=== PATIENT | male | born 1985 | race Caucasian/White ===

== ENCOUNTER 2020-03-27 14:47 | Emergency (ER) | payer OTHER, MEDICAID, SELFPAY ==
[2020-03-27 15:10] VITALS: BP 130/76; PULSE 105; RESP 20; TEMP 37.1; O2SAT 100
--- NOTE | 2020-03-27 15:15 | DI.RAD.S_ITS ---
PROCEDURE: XR KNEE LT 3V INDICATIONS: pain/swelling, felt a pop r/t hyperextension yesterday TECHNIQUE: 3 views of the knee were acquired. COMPARISON: None. FINDINGS: Bones: No fractures or dislocations. No suspicious bony lesions. Soft tissues: Suprapatellar joint effusion No suspicious soft tissue calcifications. IMPRESSION: 1. No fracture. No osseous lesion. If symptoms and/or clinical suspicion for pathology persists, further assessment with repeat radiographs (7-10 days) or advanced imaging (e.g. CT, MRI or bone scan) should be considered. 2. Nonspecific joint effusion. Occult injury is not excluded. Dictated by: Rosa Pfeiffer MD, PhD on 03/27/2020 at 15:34 Approved by: Rosa Pfeiffer MD, PhD on 03/27/2020 at 15:36
--- NOTE | 2020-03-27 18:03 | ED_ITS ---
HPI - Extremity Injury (Lower) General Chief Complaint: Extremity Injury, Lower Stated Complaint: injured knee, wants a second opinion Time Seen by Provider: 03/27/20 18:03 Source: patient Mode of arrival: Ambulatory Limitations: no limitations History of Present Illness HPI Narrative: 34-year-old male nonsmoker presents with his significant other in the chief complaint of left knee pain after an injury, requesting a 2nd opinion. He was seen and evaluated at an outside facility on March 07 after he tweaked his left knee hopping over a fence. He was seen and evaluated in told he likely had a soft tissue injury. He re-injured, and a separate event his knee a few days later, presented to the same outside facility and was hoping to be re-evaluated here. He states that his injury was the result of a hyper extension motion of his left knee. He denies any potential dislocation nor direct trauma or injury as a consequence of a fall. He has swelling and pain at the medial joint line. He denies any numbness, tingling or weakness. He denies any fever or chills. He has significant pain when straightening his leg and has not been weight-bearing, using only crutches. complaint: knee injury Onset (ago): day(s) Injury: Left: knee Type of Injury: hyperextension Place: street/outdoors Severity: moderate Relieving factors: rest Exacerbating factors: weight bearing, movement and palpation Context: jumping Associated symptoms: snap/pop sensation, swelling and unable to bear weight Other symptoms: none Treatments prior to arrival: cold therapy Related Data Previous Rx's Medication Instructions Recorded oxycodone-acetaminophen [Percocet] 1 tab PO Q4HP PRN #15 tab 11/09/16 Allergies Allergy/AdvReac Type Severity Reaction Status Date / Time Sulfa (Sulfonamide Allergy Unknown Unverified 06/21/17 11:53 Antibiotics) [SULFA (SULFONAMIDE ANTIBIOTICS)] cyclobenzaprine AdvReac Unknown nightmares/ Unverified 06/21/17 11:53 [From [facility]] terrors Review of Systems Constitutional Constitutional: Denies chills, Denies fatigue, Denies fever(s), Denies frequent falls, Denies lethargy and Denies weakness Eyes Eyes: Denies change in vision, Denies eye discharge, Denies irritation and Denies loss of vision ENT Ears, Nose, Mouth, and Throat: Denies change in voice, Denies dizziness, Denies neck pain, Denies sore throat and Denies throat swelling Cardiovascular Cardiovascular: Denies chest pain, Denies irregular heart rhythm, Denies lightheadedness, Denies palpitations, Denies dyspnea, Denies dyspnea on exertion and Denies orthopnea Respiratory Respiratory: Denies cough, Denies dyspnea, Denies dyspnea on exertion and Denies wheezing Gastrointestinal Gastrointestinal: Denies abdominal pain, Denies change in bowel habits, Denies diarrhea, Denies nausea and Denies vomiting Musculoskeletal Musculoskeletal: Reports arthralgias, Reports joint swelling, Reports limited range of motion, Denies neck pain and Denies numbness Integumentary/Breasts Skin/Breast: Denies pruritus, Denies erythema, Denies rash and Denies wounds Neurologic Neurologic: Denies behavioral changes, Denies confusion, Denies dizziness, Denies frequent falls, Denies loss of vision, Denies numbness and Denies weakness Psychiatric Psychiatric: Denies anxiety, Denies behavioral changes, Denies confusion, Denies depression, Denies homicidal ideation and Denies suicidal ideation Endocrine Endocrine: Denies fatigue, Denies flushing and Denies palpitations Hematologic/Lymphatic Hematologic/Lymphatic: Denies easy bruising Allergic/Immunologic Allergic/Immunologic: Denies urticaria, Denies throat swelling and Denies wheezing Patient History Smoking Status: Never smoker alcohol intake frequency: 0-2 drinks per day Substance Use Type: does not use Exam Narrative Exam Narrative: GEN: AOx3 and in mild distress, ambulatory with the use of crutches only EYES: Pupils are equal, round, and reactive to light and accommodation. Extraoccular muscles are intact bilaterally. There is no subconjunctival hemorrhage or exudate. CHEST: Lungs are clear to auscultation bilaterally and free of wheezes, rales, or rhonchi. Heart rate is regular rhythm, there are no murmurs, clicks, rubs, or gallops. There is no chest wall tenderness. ABD: Abdomen is soft and nontender. There is no guarding or rebound. Bowel sounds are normal in all 4 quadrants. There is no mass or organomegaly. EXT: Decreased range of motion of left knee secondary to pain moderate effusion and medial joint line tenderness. Closed, isolated and neurovascular intact. No erythema or warmth. No obvious ligamentous instability. SKIN: Warm, pink, and dry. No erythema or rash Initial Vital Signs Initial Vital Signs: Vital Signs Temperature 98.8 F 03/27/20 15:10 Pulse Rate 105 H 03/27/20 15:10 Respiratory Rate 20 03/27/20 15:10 Blood Pressure 130/76 03/27/20 15:10 Pulse Oximetry 100 03/27/20 15:10 Procedures Joint Aspiration Joint Asp./Inject. 1: Time Out Performed: Yes Side of body: left Joint Aspirated: knee Ultrasound Guidance: No Skin Prep: Chlorhexidine Local Anesthetic: bupivacaine 0.25% Amount of anesthesia used (mL): 4 Needle Size Used: 22G Fluid Obtained: clear Amount of medication injected (mL): 3 Patient Tolerated Procedure: Well Complications: none Course Course Course Narrative: patient does not tolerate knee immobilizer well, which he was given at outside facility. Extensive discussion regarding non weightbearing and close follow up with PCP to likely obtain outpatient MRI Orders Ordered: ED Orders 03/27/20 18:57 CT LE LT wo con Stat Discontinued Medications Bupivacaine HCl (Bupivacaine 0.5% (Pf) Vial) 5 ml SUBCUT NOW ONE Stop: 03/27/20 18:22 Last Admin: 03/27/20 18:30 Dose: 5 ml Documented by: SALLY Vital Signs Vital signs: Vital Signs - 8 hr 03/27/20 15:10 Temperature 98.8 F Pulse Rate 105 H Respiratory Rate 20 Blood Pressure 130/76 Pulse Oximetry 100 MDM - Extremity Injury (Lower) Imaging Data Extremity x-ray #1: Radiologist's Impression: Marty Stanley Sarah 34 M [address] [id number] ReportSigned Patient: Marty Stanley RMR#: [id number]: 1985Acct:[id number]/Sex: 34 / MDate of Service: 03/27/20Loc: EDAccession Number: [id number] Procedure: XR knee LT 3V Ordering Provider: Zuri Piedra MD PROCEDURE: XR KNEE LT 3V INDICATIONS: pain/swelling, felt a pop r/t hyperextension yesterday TECHNIQUE: 3 views of the knee were acquired. COMPARISON: None. FINDINGS: Bones: No fractures or dislocations. No suspicious bony lesions. Soft tissues: Suprapatellar joint effusion No suspicious soft tissue calcifications. IMPRESSION: 1. No fracture. No osseous lesion. If symptoms and/or clinical suspicion for pathology persists, further assessment with repeat radiographs (7-10 days) or advanced imaging (e.g. CT, MRI or bone scan) should be considered. 2. Nonspecific joint effusion. Occult injury is not excluded. Dictated by: Rosa Pfeiffer MD, PhD on 03/27/2020 at 15:34 Approved by: Rosa Pfeiffer MD, PhD on 03/27/2020 at 15:36 CT Left Knee: Radiologist's Impression: [address] [id number] Scan ReportSigned Patient: Marty Stanley RMR#: [id number]: 1985Acct:[id number]/Sex: 34 / MDate of Service: 03/27/20Loc: EDAccession Number: [id number] Procedure: CT LE LT wo con Ordering Provider: Stiven Rod D.O. PROCEDURE: CT LE LT W CON INDICATIONS: severe pain after hyperextension injury TECHNIQUE: Noncontrast 1-1.5 mm axial sections acquired from the mid-patella to the proximal tibia, with coronal and sagittal reformats. COMPARISON: None. FINDINGS: Image quality: Excellent. Bones: No fracture demonstrated. Normal alignment of the knee and normal position of the patella. Soft tissues: Moderate-sized suprapatellar and infrapatellar knee joint effusion. No lipohemarthrosis. IMPRESSION: No fracture demonstrated. Moderate-sized suprapatellar and infrapatellar knee joint effusion. Ligamentous injury suspected. Nonemergent outpatient MRI recommended. Dictated by: Brant Galvan M.D. on 03/27/2020 at 19:11 Approved by: Brant Galvan M.D. on 03/27/2020 at 19:13 Discharge Plan Departure Patient Disposition: Home Clinical Impression: Knee Injury Instructions: DI for Knee Sprain Activity Restrictions/Additional Instructions: *You have been diagnosed with [left knee internal derangement, likely ligamentous injury] *What to do: *Take medications as directed *Follow up with your primary care provider in 2-3 days, call for an a ppointment. Let them know you were seen in the Emergency Department and that we ask that you be seen in follow up. It seems reasonable to consider an MRI as an outpatient, this also was mentioned in the radiology report *Return to ER if you should have any new, worsening or concerning symptoms Prescriptions: No Action oxycodone-acetaminophen [Percocet] 5 MG/325 MG tablet 1 tab PO Q4HP PRNQty: 15 RF: 0 Referrals: Tiffany Norwood ARNP [Primary Care Provider] - Gian Bridges MD [Physician] -
[2020-03-27] MEDS: BUPIVACAINE 0.5% (PF) VIAL 5 ML SUBCUT (18:30)
--- NOTE | 2020-03-27 18:57 | DI.CT.S_ITS ---
PROCEDURE: CT LE LT W CON INDICATIONS: severe pain after hyperextension injury TECHNIQUE: Noncontrast 1-1.5 mm axial sections acquired from the mid-patella to the proximal tibia, with coronal and sagittal reformats. COMPARISON: None. FINDINGS: Image quality: Excellent. Bones: No fracture demonstrated. Normal alignment of the knee and normal position of the patella. Soft tissues: Moderate-sized suprapatellar and infrapatellar knee joint effusion. No lipohemarthrosis. IMPRESSION: No fracture demonstrated. Moderate-sized suprapatellar and infrapatellar knee joint effusion. Ligamentous injury suspected. Nonemergent outpatient MRI recommended. Dictated by: Brant Galvan M.D. on 03/27/2020 at 19:11 Approved by: Brant Galvan M.D. on 03/27/2020 at 19:13
== END 2020-03-27 20:11 | disposition home or self-care (01) ==
PROVIDERS: Emergency Provider Emergency Medicine; Family Provider Nurse Practitioner Family; PCP Nurse Practitioner Family
DX: S89.92XA Unspecified injury of left lower leg, initial encounter (principal); X58.XXXA Exposure to other specified factors, initial encounter
CPT/HCPCS: 20610; 73562; 73700; 99283; 99284